=== PATIENT | female | born 1945 | race Caucasian/White ===

== ENCOUNTER 2020-01-02 14:46 | Outpatient (CLI) | payer BC, SELFPAY ==
--- NOTE | ~2020-01-02 | DEXA_ITS ---
Bone Density Report Name: lAea Henson Age: 74 Sex: Female Ethnicity: White Date of : 1945 Indication: postmenopausal; height loss; Referring Provider: Estefania Guillory Study: Bone densitometry was performed. Exam Date: January 02, 2020 Accession number: [id number] Bone Density: Region BMD T-score Z-score Classification AP Spine (L1-L4) 0.919 -1.2 1.2 Osteopenia Femoral Neck (Left) 0.712 -1.2 0.8 Osteopenia Total Hip (Left) 0.958 0.1 1.8 Normal Total Hip Bilateral Avg 0.950 0.1 1.8 Normal Femoral Neck (Right) 0.721 -1.2 0.9 Osteopenia Total Hip (Right) 0.940 0.0 1.7 Normal World Health Organization criteria for BMD impression classify patients as: Normal (T-score at or above -1.0), Osteopenia (T-score between -1.0 and -2.5), or Osteoporosis (T-score at or below -2.5). 10-year Fracture Risk(1): Major Osteoporotic Fracture 9.0% Hip Fracture 1.3% Reported Risk Factors: [place] (), Neck BMD=0.712, BMI=39.1 (1) FRAX(R) Version 3.08. Fracture probability calculated for an untreated patient. Fracture probability may be lower if the patient has received treatment. Clinical Information Provided by Patient: Patient maximum height was 61 Menopause Age: 53 No regular weight bearing exercise Drinks caffeinated beverages Onset of menses at age 12 Number of children 3 Impression: The patient has low bone mass, based on the Total Spine T-score. The patient has an estimated ten-year risk of hip fracture of 1.3% and an estimated ten-year risk of major fracture of 9%, based on the WHO FRAX algorithm. Discussion: BONE DENSITY IS LOW AT ONE OR MORE SKELETAL SITES. This patient's lowest T-score is low at one or more skeletal sites. It meets the World Health Organization's (WHO) criteria for ?low bone mass? (T-score between -1.0 and -2.5). The patient's 10-year risk of fracture as calculated by FRAX is less than the threshold where pharmacological therapy is recommended by the National Osteoporosis Foundation (NOF). However, all treatment decisions require clinical judgment and consideration of individual patient factors, including patient preferences, comorbidities, previous drug use, risk factors not captured in the FRAX model (e.g., frailty, falls, vitamin D deficiency, increased bone turnover, interval significant decline in bone density) and possible under or overestimation of fracture risk by FRAX. The patient should follow a healthful lifestyle (good nutrition with adequate calcium and vitamin D, and appropriate weight-bearing exercise). Follow-Up: Consider repeating this study in 2 to 3 years to reassess this patient's status, or sooner if there is some new clinical indication. Reported by: CADEN on 01/02/2020 3:12:00 PM. Reviewed,
--- NOTE | ~2020-01-02 | MM_ITS ---
EXAMINATION: MM screening alvaro BI w juan ramon HISTORY: Screening TECHNIQUE: Craniocaudal and mediolateral oblique 3-D tomosynthesis images were obtained and synthetic 2-D images were generated. CAD analysis was submitted and interpreted. COMPARISON: No prior mammogram is available for comparison at this institution. BREAST PARENCHYMAL COMPOSITION: Breast composed of scattered areas of fibroglandular density FINDINGS: There is no evidence of suspicious mass, calcification, or architectural distortion to sugg est malignancy in either breast. There has been no suspicious interval change. IMPRESSION: 1. No mammographic evidence of malignancy. 2. Recommend routine screening mammography in one year. BI-RADS Category 1: Negative Reviewed, dictated and finalized at location A.
== END 2020-01-02 14:47 | disposition home or self-care (01) ==
PROVIDERS: PCP Family Medicine; Visit Provider Physician Assistant
DX: Z12.31 Encounter for screening mammogram for malignant neoplasm of breast (principal); Z78.0 Asymptomatic menopausal state; M85.89 Other specified disorders of bone density and structure, multiple sites
CPT/HCPCS: 77063; 77067; 77080

== ENCOUNTER 2020-02-25 14:30 | Outpatient (RCR) | payer BC, SELFPAY ==
[2020-02-03 12:57] VITALS: BMI 37.7
[2020-02-03 12:58] VITALS: BMI 37.7
== END 2020-03-29 09:44 | disposition home or self-care (01) ==
LOC: ANHDMC 14:30
PROVIDERS: PCP Family Medicine; Visit Provider Family Medicine
DX: E11.9 Type 2 diabetes mellitus without complications (principal); Z71.89 Other specified counseling; Z71.3 Dietary counseling and surveillance
CPT/HCPCS: 97802; G0108; G0109

== ENCOUNTER 2020-07-14 14:30 | Outpatient (RCR) | payer BC, SELFPAY ==
[2020-04-29 08:01] VITALS: BMI 37.7
== END 2020-07-26 12:00 | disposition home or self-care (01) ==
LOC: ANHDMC 14:30
PROVIDERS: PCP Family Medicine; Visit Provider Family Medicine
DX: E11.9 Type 2 diabetes mellitus without complications (principal); Z71.3 Dietary counseling and surveillance; Z71.89 Other specified counseling
CPT/HCPCS: 97803; G0109

== ENCOUNTER 2020-11-08 13:00 | Outpatient (RCR) | payer BC, SELFPAY | END 2020-11-08 16:14 | disposition home or self-care (01) | LOC: ANHDMC 13:00 | PROVIDERS: PCP Family Medicine; Visit Provider Family Medicine | DX: E11.9 Type 2 diabetes mellitus without complications (principal); Z71.89 Other specified counseling | CPT/HCPCS: G0108; G0109 ==

== ENCOUNTER → 2021-03-02 02:58 | Outpatient (CLI) | payer BC, SELFPAY ==
[2021-03-02 19:23] LABS: SARS-CoV-2 RNA PCR Negative
== END ==
PROVIDERS: PCP Family Medicine; Visit Provider Nurse Practitioner Family
DX: Z20.822 Contact with and (suspected) exposure to COVID-19 (principal); R05.9 Cough, unspecified
CPT/HCPCS: C9803; U0003; U0005

== ENCOUNTER 2021-03-04 12:06 | Outpatient (CLI) | payer BC, SELFPAY ==
--- NOTE | ~2021-03-04 | XR_ITS ---
EXAMINATION: XR abdomen/kub 1V DATE: 03/04/2021 12:21 INDICATION: Constipation, unspecified. TECHNIQUE: A supine view of the abdomen on 2 radiographs was obtained. COMPARISON: None. FINDINGS: There are no dilated loops of bowel. There is a large volume of stool in the colon. There i s a phlebolith in left pelvis. IMPRESSION: 1. Nonobstructive bowel gas pattern. Reviewed, dictated and finalized at location A.
== END 2021-03-04 12:07 | disposition home or self-care (01) ==
LOC: ANHIMG 12:08
PROVIDERS: PCP Family Medicine; Visit Provider Nurse Practitioner Family
DX: K59.00 Constipation, unspecified (principal); R10.9 Unspecified abdominal pain
CPT/HCPCS: 74018

== ENCOUNTER 2021-03-16 15:28 | Outpatient (CLI) | payer BC, SELFPAY ==
--- NOTE | ~2021-03-16 | XR_ITS ---
EXAMINATION: XR chest 2V EXAM DATE: 03/16/2021 15:40 INDICATION: R05.9 - Cough, SOB, HTN, HX pneumonia. TECHNIQUE: Frontal and lateral projections of the chest obtained and reviewed. Comparison is made to prior examination from 01/09/2018. FINDINGS: Increased density on the lateral projection probably large epicardial fat pad. The lungs a re clear. There are no pleural effusions. The cardiomediastinal silhouette is within normal limits. There is no pneumothorax suspected. The bones and soft tissues are unremarkable. There is no sig nificant interval change. IMPRESSION: No acute cardiopulmonary findings. Reviewed, dictated and finalized at location B.
== END 2021-03-16 15:29 | disposition home or self-care (01) ==
LOC: ANHIMG 15:30
PROVIDERS: PCP Family Medicine; Visit Provider Physician Assistant
DX: R05.9 Cough, unspecified (principal)
CPT/HCPCS: 71046

== ENCOUNTER 2021-04-19 17:48 | Outpatient (CLI) | payer BC, SELFPAY ==
--- NOTE | ~2021-04-19 | XR_ITS ---
EXAMINATION: XR chest 2V DATE: 04/19/2021 18:17 INDICATION: Cough. Shortness of breath. TECHNIQUE: Frontal and lateral views of the chest were obtained. COMPARISON: Chest 2 views 03/16/2021 FINDINGS: The patient is rotated to her left on the frontal view. There is mild atelectasis at right lung base. No pleural effusion or pneumothorax. The heart size is normal. There are prominent paracar dial fat pads. IMPRESSION: 1. Mild atelectasis at right lung base. Reviewed, dictated and finalized at location A. [employer]IST
== END 2021-04-19 17:49 | disposition home or self-care (01) ==
LOC: ANHIMG 17:52
PROVIDERS: PCP Family Medicine; Visit Provider Physician Assistant
DX: R05.9 Cough, unspecified (principal); R06.02 Shortness of breath; J98.11 Atelectasis
CPT/HCPCS: 71046

== ENCOUNTER 2021-04-20 13:04 | Outpatient (CLI) | payer BC, SELFPAY ==
[2021-04-20 14:01] LABS: Basophils Percent Auto 0.4 % (0.2-1.2); Eosinophils Absolute Auto 0.6 K/mm3 (0-0.3); Eosinophils Percent Auto 6.7 % (0-4.4); Hematocrit 36.4 % (37.0-47.0); Hemoglobin 12.2 g/dL (12.0-15.0); Immature Granulocyte Absolute 0.06 K/mm3 (0.00-0.031); Immature Granulocyte Percent A 0.7 % (0-0.5); Lymphocytes Absolute Auto 2.31 K/mm3 (0.9-3.2); Lymphocytes Percent Auto 27.5 % (18.3-44.2); Mean Corpuscular HGB Conc 33.5 g/dl (32-36); Mean Corpuscular Hemoglobin 31.9 pg (26-34); Mean Platelet Volume 9.3 fl (7.4-10.4); Monocytes Absolute Auto 0.6 K/mm3 (0.1-0.6); Monocytes Percent Auto 7.2 % (2.6-8.5); Neutrophils Absolute Auto 4.8 K/mm3 (1.3-6.7); Neutrophils Percent Auto 57.5 % (45.5-73.1); Platelet Count Result 204 k/mm3 (150-375); Red Blood Count 3.83 M/mm3 (4.2-5.4); White Blood Count 8.4 K/mm3 (4.5-10.0)
== END 2021-04-20 13:05 | disposition home or self-care (01) ==
PROVIDERS: PCP Family Medicine; Visit Provider Physician Assistant
DX: R05.9 Cough, unspecified (principal)
CPT/HCPCS: 36415; 85025

== ENCOUNTER → 2021-04-26 03:18 | Outpatient (CLI) | payer BC, SELFPAY ==
[2021-04-26 20:28] LABS: SARS-CoV-2 RNA PCR Negative
== END ==
PROVIDERS: PCP Family Medicine; Visit Provider Physician Assistant
DX: R05.9 Cough, unspecified (principal); R06.2 Wheezing; Z20.822 Contact with and (suspected) exposure to COVID-19
CPT/HCPCS: C9803; U0003; U0005

== ENCOUNTER → 2021-05-30 04:02 | Outpatient (CLI) | payer BC, SELFPAY ==
[2021-05-30 14:39] LABS: Influenza Control Positive
[2021-05-30 20:23] LABS: SARS-CoV-2 RNA PCR Positive
== END ==
PROVIDERS: PCP Family Medicine; Visit Provider Physician Assistant
DX: U07.1 COVID-19 (principal); R05.9 Cough, unspecified
CPT/HCPCS: 87804; C9803; U0003; U0005

== ENCOUNTER 2023-08-20 18:00 | Inpatient (IN) | payer BC, MEDICARE, SELFPAY ==
--- NOTE | ~2023-08-20 | CT_ITS ---
EXAMINATION: CT abdomen pelvis w con DATE: 08/21/2023 13:54 INDICATION: Abdominal bloating. TECHNIQUE: Computed tomography (CT) of the abdomen and pelvis was performed with 100 mL Omnipaque 350 intravenous contrast. Automated exposure control and iterative reconstruction technique were employe d. The dose-length product was 969.30 mGy-cm. COMPARISON: None. FINDINGS: The visualized portions of the lung bases demonstrate mild atelectasis in right middle lobe and lingula and right lower lobe. There are airspace opacities in left lower lobe with air bronchogr ams and volume loss. No pleural effusion. The heart size is normal. No pericardial effusion. The live r is normal. There are gallstones in the gallbladder, which is normal in size. The spleen, pancreas, adrenal glands, and kidneys are normal. There is diverticulosis of the colon without evidence of dive rticulitis. There are no dilated loops of bowel. The appendix is normal. There are no pathologically enlarged lymph nodes. There is no free intraperitoneal fluid. There is an umbilical hernia containing fat. There is severe thoracic and lumbar spondylosis. IMPRESSION: 1. Umbilical hernia containing fat. 2. Worsened airspace opacities in left lower lobe, consistent with pneumonia. 3. Cholelithiasis. No evidence of acute cholecystitis. Reviewed, dictated and finalized at location A.
--- NOTE | ~2023-08-20 | CT_ITS ---
Clinical Indication: Dyspnea CT Scan of the Chest with Contrast: Technique: Contiguous sections were acquired throughout the chest after intravenous administration of 100 cc of Omnipaque 350. Dose reduction technique was used on this scan by utilizing automated expos ure control and iterative reconstruction technique. The dose-length product (DLP) was 865.35 mGy-cm. Findings: There is no evidence of any significant mediastinal, hilar or axillary lymphadenopathy. There is no f illing defect in the pulmonary arterial tree to suggest pulmonary embolus. There is no evidence of ao rtic dissection or aneurysm. There is no evidence of pleural or pericardial effusion. Left basilar consolidation could reflect atelectasis versus pneumonia.. Images through the upper abdomen reveal gallstones. Impression: No evidence of pulmonary embolus, aortic dissection, or aortic aneurysm. Left lower lobe pneumonia versus atelectasis. Cholelithiasis. Reviewed, dictated and finalized at [facility]. Impression: No evidence of pulmonary embolus, aortic dissection, or aortic aneurysm. Left lower lobe pneumonia versus atelectasis. Cholelithiasis.
--- NOTE | ~2023-08-20 | XR_ITS ---
EXAMINATION: XR chest 2V Exam Date/Time: 08/20/2023 18:20 CDT HISTORY: sob Comparison: 04/19/2021, report only. RESULT: Lines, tubes, and devices: None. Lungs and pleura: Clear. Cardiomediastinal silhouette: Stable. Other: No acute osseous or upper abdominal finding. IMPRESSION: No acute cardiopulmonary process. Reviewed, dictated and finalized at location K.
[2023-08-20 18:05] VITALS: BP 151/55; PULSE 88; RESP 22; TEMP 37.2; O2SAT 94
--- NOTE | 2023-08-20 22:57 | ECG_ITS ---
Measurements Intervals [place] Rate: 96 P: 42 VA: 132 QRS: -2 QRSD: 94 T: 33 QT: 349 QTc: 442 Interpretive Statements SINUS RHYTHM INCOMPLETE RIGHT BUNDLE BRANCH BLOCK [90+ ms QRS DURATION, TERMINAL R IN V1/V2, 40+ ms S IN I/aVL/V4/V5/V6] MODERATE VOLTAGE CRITERIA FOR LVH, CONSIDER NORMAL VARIANT [MEETS CRITERIA IN ONE OF: R(aVL), S(V1), R(V5), R(V5/V6)+S(V1)] POSSIBLE ANTERIOR MYOCARDIAL INFARCTION , PROBABLY OLD [30 ms Q WAVE IN V3/V4, OR R < 0.2 mV IN V4] NO PREVIOUS ECG AVAILABLE FOR COMPARISON Electronically Signed On 08-21-2023 8:51:14 CDT by Jose Antonio Mack M.D.
--- NOTE | 2023-08-20 23:03 | ED.GENADULT ---
HPI - General Adult General Chief complaint: Shortness of Breath/Dyspnea <DORYS Lewis Last Filed: 08/21/23 02:41> Stated complaint: shortness of breath <DORYS Lewis Last Filed: 08/21/23 02:41> Time Seen by Provider: 08/20/23 22:50 <DORYS Lewis Last Filed: 08/21/23 02:41> Source: patient <DORYS Lewis Last Filed: 08/21/23 02:41> Mode of arrival: ambulatory <DORYS Lewis Last Filed: 08/21/23 02:41> Limitations: no limitations <DORYS Lewis Last Filed: 08/21/23 02:41> History of Present Illness HPI narrative: This is a 78-year-old female who who presents to the ED for chief complaint of dyspnea times 2 weeks. Reports that she has had short of breath and a productive cough for this entire time. Reports she went to urgent care initially and had negative COVID, flu, RSV test. States that they gave her antibiotics and steroids for possible developing pneumonia and does seem to help for a few days but things started to get worse again. Patient reports that she is more short of breath at night and unable to lay flat. Denies leg swelling. She feels that her abdomen is bloated and is causing some chest discomfort but denies any specific chest pain. Denies syncope, abdominal pain, nausea vomiting, urinary symptoms or back pain. She is here with daughter endorses that patient has had chills and subjective fevers. <DORYS Lewis Last Filed: 08/21/23 02:41> Related Data Home medications: Home Medications Medication Instructions Recorded Confirmed acetaminophen 325 mg tablet 650 mg PO TID PRN Pain 08/21/23 08/21/23 (Tylenol) fexofenadine 30 mg tablet 30 mg PO DAILY 08/21/23 08/21/23 oxybutynin chloride 5 mg 5 mg PO DAILY 08/21/23 08/21/23 tablet,extended release 24 hr <DORYS Lewis Last Filed: 08/21/23 02:41> Allergies/adverse reactions: Allergies Allergy/AdvReac Type Severity Reaction Status Date / Time erythromycin base Allergy Unknown Rash Verified 08/20/23 18:09 Penicillins Allergy Unknown Rash Verified 08/20/23 18:09 <Cody Gramajo PA-C - Last Filed: 08/21/23 02:41> Review of Systems Review of Systems: All systems as dictated in HPI <DORYS Lewis Last Filed: 08/21/23 02:41> [facility] Past Medical History Medical History: Medical History Diabetes mellitus Osteopenia Sleeping difficulties Wellness examination <DORYS Lewis Last Filed: 08/21/23 02:41> Family History Family History: Family History Father Diabetes mellitus Hypertension Family history of cardiovascular disease Mother Diabetes mellitus Sibling Diabetes mellitus <DORYS Lewis Last Filed: 08/21/23 02:41> Social History Social History: Social History Smoking status: Never smoker Second hand tobacco smoke exposure: No Alcohol intake: never Substance use: never Substance use type: does not use Do You Feel Safe in your Home?: Yes Lack of Transportation: No Lack of Food: Never True Current Housing: I Have Housing Concerned About Future Housing: No Difficulty Paying Gas/Electric Bills: No Difficulty Paying for Meds: No Currently Unemployed: No Education: High School Diploma/GED Difficulty w/ Childcare or Family Care: No Living arrangements: with family Additional living arrangements comments: Grandson Occupation/Education: occupation Gender identity (if verbalized by the patient): Female Sexual Orientation (if Verbalized by the Patient): Straight or Heterosexual Spiritual care concerns: No <DORYS Lewis Last Filed: 08/21/23 02:41> Exam Narrative: GENERAL: Appears ill. Appears fatigued and elderly. Warm to touch diffusely HEAD: Normocephalic, atra
[2023-08-20 23:11] LABS: Basophils Percent Auto 0.2 % (0.2-1.2); Eosinophils Percent Auto 0.2 % (0-4.4); Hematocrit 39.5 % (37.0-47.0); Hemoglobin 12.7 g/dL (12.0-15.0); Immature Granulocyte Absolute 0.05 K/mm3 (0.00-0.031); Immature Granulocyte Percent A 0.4 % (0-0.5); Lymphocytes Absolute Auto 1.04 K/mm3 (0.9-3.2); Lymphocytes Percent Auto 8.4 % (18.3-44.2); Mean Corpuscular HGB Conc 32.2 g/dl (32-36); Mean Corpuscular Hemoglobin 31.2 pg (26-34); Mean Corpuscular Volume 97.1 fl (80-100); Monocytes Percent Auto 8.4 % (2.6-8.5); Neutrophils Absolute Auto 10.2 K/mm3 (1.3-6.7); Neutrophils Percent Auto 82.4 % (45.5-73.1); Platelet Count Result 177 k/mm3 (150-375); Red Blood Count 4.07 M/mm3 (4.2-5.4); Red Cell Distribution Width 13.1 % (11.5-14.5); White Blood Count 12.4 K/mm3 (4.5-10.0)
[2023-08-20 23:17] VITALS: TEMP 39.1
[2023-08-20 23:20] LABS: INR 1.1; Lactic Acid Reflex 3.9 mmol/L (0.7-2.0); Prothrombin Time 14.3 Seconds (11.1-14.7)
[2023-08-20 23:21] LABS: Partial Thromboplastin Time 28.5 Seconds (22.3-36.8)
[2023-08-20 23:23] LABS: Alanine Aminotransferase 24 U/L (6-35); Albumin Level 3.9 g/dL (3.5-5.1); Alkaline Phosphatase 74 U/L (38-126); Anion Gap 10 mmol/L (4-12); Aspartate Amino Transferase 27 U/L (14-36); Bilirubin,Total 0.7 mg/dL (0.2-1.3); Blood Urea Nitrogen 16 mg/dL (7-17); Calcium 8.8 mg/dL (8.4-10.2); Carbon Dioxide 23 mmol/L (22-30); Chloride 101 mmol/L (98-107); Estimated CRCL calculation 50 ml/min; Estimated Glomerular Filt Rate > 60; Glucose 187 mg/dL (65-110); Magnesium 1.5 mg/dL (1.6-2.3); Potassium 4.1 mmol/L (3.4-5.0); Sodium 134 mmol/L (137-145)
[2023-08-20 23:28] VITALS: O2SAT 95
[2023-08-20 23:30] VITALS: PULSE 95; RESP 19
[2023-08-20] MEDS: SODIUM CHLORIDE 0.9% IV 1,000 ML 999 ML IV CONT (23:30)
[2023-08-20] MEDS: IPRATROPIUM 0.5 MG/ALBUTEROL SULFATE 2.5 MG AMPUL.NEB 3 ML INHALATION (23:30)
[2023-08-20] MEDS: ACETAMINOPHEN 500 MG TABLET 1000 MG PO (23:30)
[2023-08-20 23:33] LABS: Troponin I < 0.012 ng/mL (0.000-0.034)
[2023-08-20 23:39] LABS: NT Pro B Type Natriuretic Pept 393 pg/mL (19.9-100)
[2023-08-20 23:40] LABS: Appearance Urine Clear (Clear); Bilirubin Urine Negative (Negative); Blood Urine Negative (Negative); Color Urine Yellow (Yellow); Glucose Urine UA Negative (Negative); Ketones Urine Negative (Negative); Leukocyte Esterase Ur Negative LEU/UL (Negative); Nitrate Urine Negative (Negative); Protein Urine Negative (Negative); Specific Grav Ur 1.022 (1.001-1.035); Urobilinogen Urine 0.2 mg/dL (<2.0)
[2023-08-20 23:42] LABS: Add Urine Microscopic? NO
[2023-08-20] MEDS: ONDANSETRON INJ 4 MG/2 ML VIAL IV PUSH (23:43)
[2023-08-20 23:54] LABS: Alveolar/Arterial O2 Gradient 168.5 mmHg; Fractional Inspired Oxygen 48 %; HCO3 ABG 22.6 mEq/l (22.0-26.0); Oxygen Content ABG 17.4 %vol (16.0-22.0); Oxygen Saturation ABG 98.6 % (95.0-100.0); Oxyhemoglobin 97.2 % THb (90.0-100.0); PCO2 ABG 38.1 mmHg (35.0-45.0); PO2 ABG 130.7 mmHg (80.0-100.0); PO2 FiO2 Ratio Arterial Blood 2.72 %; Total Hemoglobin 12.6 g/dL (12.0-18.0); pH ABG 7.391 (7.350-7.450)
[2023-08-20 23:57] LABS: Influenza A QL RT-PCR Negative (Negative); Influenza B QL RT-PCR Negative (Negative); RSV RNA, RT-PCR Negative (Negative); SARS-CoV-2 RNA PCR Negative (Negative)
[2023-08-20] MEDS: AZITHROMYCIN 500 MG/NS 250 ML 500 MG/250 ML BAG 250 MG IVPB (23:59)
[2023-08-21] VITALS (26 sets, daily range): BP systolic 117–141; BP diastolic 46–68; PULSE 66–100; RESP 19–28; TEMP 36.4–38.2; O2SAT 95–100; BMI 37.2
[2023-08-21 00:02] LABS: Device OTHER DEVICE; Modified Allen's Test Pass; Site Drawn LEFT RADIAL
[2023-08-21] MEDS: IPRATROPIUM 0.5 MG/ALBUTEROL SULFATE 2.5 MG AMPUL.NEB 3 ML INHALATION ×3 (01:14→20:10)
[2023-08-21] MEDS: SODIUM CHLORIDE 0.9% IV 1,000 ML 999 ML IV CONT (01:45)
[2023-08-21] MEDS: MAGNESIUM SULF 2 GM/WATER 50ML 2 GM/50 ML BAG IVPB (01:48)
[2023-08-21] MEDS: ONDANSETRON INJ 4 MG/2 ML VIAL IV PUSH (01:49)
[2023-08-21 02:07] LABS: Reflex Lactic Acid Yes or No Add Lactic
--- NOTE | 2023-08-21 02:09 | PC.NURSE ---
Pt daughter contacted and given update.
--- NOTE | 2023-08-21 03:28 | ADMGEN ---
This patient, Alea Henson, was admitted to IMU Room 200-01. Patient/family oriented to hospital policies and general routines including ID bracelet, bed and alarms, visiting hours, pain management, procedures, bathroom and other care routines, personal items, smoking policy, room service/diet, and visiting hours. Information on how to activate the Rapid Response Team has been discussed. Patient/Family are encouraged to report perceived risks to care and to ask questions if they do not understand what they are told or what they should do.
[2023-08-21] MEDS: SODIUM CHLORIDE 0.9% IV 1,000 ML 125 ML IV CONT ×2 (03:53→12:05)
[2023-08-21] MEDS: ACETAMINOPHEN 325 MG TABLET 650 MG PO ×2 (03:54→14:39)
[2023-08-21 05:40] LABS: Lactic Acid 3.3 mmol/L (0.7-2.0)
--- NOTE | 2023-08-21 11:28 | PM.IMHP ---
H&P: HPI History of Present Illness Date/Time: 08/21/23 11:28 Chief Complaint: Shortness of breath Narrative: 78yo female with DM and untreated ERIC here for shortness of breath. Patient underwent screening colonoscopy on July 22 that showed diverticulosis. She had EGD performed as well because symptoms of acid reflux but this was negative. She tolerated the procedure well. No evidence of vomiting during or after the procedure. She was well until about a week later when she developed shortness of breath, rhinorrhea, fever and cough productive green-yellow sputum. She went to the urgent care center on August 02 and was treated with steroids and antibiotics. No chest x-ray was done but exam was consistent with pneumonia. She was treated with clindamycin t.i.d. for 10 days which she completed. She began to feel better with this treatment but once off antibiotics her symptoms returned a few days later. Over the past week or so, patient has had increasing symptoms with shortness of breath, abdominal bloating, fever and cough still productive green-yellow sputum. She has orthopnea symptoms. No exposures that she is aware of. She has had pneumonia 3-4 times but the last episode of pneumonia was 2018. She did have a sinus fraction treated with antibiotics in June. No history of resistant bacteria. No recent travel. She has also complained headache. No leg swelling. She did develop nausea and vomiting in the ED of yellow emesis. No history of asthma or emphysema but does have untreated sleep apnea. No history of CHF. She has been able tolerate some food but not eating very much. She is passing stool with the last bowel movement yesterday. She has a history of constipation. No diarrhea. She did call her doctor but was unable to get in touch with the provider. Her symptoms worsened and she presented to emergency room for evaluation. In the emergency room, she was febrile to 102.4. Blood pressure stable. Respiratory was 22. She is 94% on room air. She was not tachycardic. White count was 12 K with a left shift. ABG was 7.39/38/131 on 7 L. lactic acid was 3.9. Magnesium was low and this was replaced. BNP was 393. Troponin was negative. Urinalysis was clear. Influenza, RSV and COVID PCR were negative. Chest x-ray was clear. CTA of chest showed no PE but did show left basilar consolidation atelectasis versus pneumonia as well as gallstones. She denies abdominal pain. She was treated with bronchodilators, acetaminophen, Zofran and given appropriate IV fluids. She was given Rocephin and azithromycin. She was admitted for further care. Review of Systems Review of Systems: All systems reviewed & are unremarkable except as noted in HPI and below PMFSH Past Medical History Medical History (Updated 08/21/23 @ 13:38 by Duane Navarro MD) Diabetes mellitus Hypertension ERIC (obstructive sleep apnea) Osteopenia Sleeping difficulties Wellness examination Surgical History Surgical History (Updated 08/21/23 @ 12:24 by Duane Navarro MD) History of bladder suspension procedure Hx of abdominoplasty Hx of breast surgery Hx of toe surgery Family History Family History Father Diabetes mellitus Hypertension Family history of cardiovascular disease Mother Diabetes mellitus Sibling Diabetes mellitus Social History Social History Smoking status: Never smoker Second hand tobacco smoke exposure: No Alcohol intake: never Substance use: never Substance use type: does not use Do You Feel Safe in your Home?: Yes Lack of Transportation: No Lack of Food: Never True Current Housing: I Have Housing Concerned About Future Housing: No Difficulty Paying Gas/Electric Bills: No Difficulty Paying for Meds: No Currently Unemployed: No Education: High School Diploma/GED Difficulty w/
[2023-08-21 13:21] LABS: Basophils Percent Auto 0.1 % (0.2-1.2); Eosinophils Percent Auto 0.2 % (0-4.4); Hematocrit 35.9 % (37.0-47.0); Hemoglobin 11.3 g/dL (12.0-15.0); Immature Granulocyte Absolute 0.04 K/mm3 (0.00-0.031); Immature Granulocyte Percent A 0.3 % (0-0.5); Lymphocytes Absolute Auto 1.62 K/mm3 (0.9-3.2); Lymphocytes Percent Auto 13.8 % (18.3-44.2); Mean Corpuscular HGB Conc 31.5 g/dl (32-36); Mean Corpuscular Hemoglobin 31.2 pg (26-34); Mean Corpuscular Volume 99.2 fl (80-100); Mean Platelet Volume 10.1 fl (7.4-10.4); Monocytes Absolute Auto 0.9 K/mm3 (0.1-0.6); Monocytes Percent Auto 7.9 % (2.6-8.5); Neutrophils Absolute Auto 9.1 K/mm3 (1.3-6.7); Neutrophils Percent Auto 77.7 % (45.5-73.1); Platelet Count Result 149 k/mm3 (150-375); Red Blood Count 3.62 M/mm3 (4.2-5.4); Red Cell Distribution Width 13.4 % (11.5-14.5); White Blood Count 11.7 K/mm3 (4.5-10.0)
[2023-08-21 13:34] LABS: Alanine Aminotransferase 19 U/L (6-35); Albumin Level 3.3 g/dL (3.5-5.1); Alkaline Phosphatase 62 U/L (38-126); Anion Gap 4 mmol/L (4-12); Aspartate Amino Transferase 19 U/L (14-36); Bilirubin,Total 0.8 mg/dL (0.2-1.3); Blood Urea Nitrogen 11 mg/dL (7-17); Calcium 7.9 mg/dL (8.4-10.2); Carbon Dioxide 25 mmol/L (22-30); Chloride 107 mmol/L (98-107); Estimated CRCL calculation 57 ml/min; Estimated Glomerular Filt Rate > 60; Glucose 110 mg/dL (65-110); Magnesium 2.5 mg/dL (1.6-2.3); Sodium 136 mmol/L (137-145)
[2023-08-21 13:35] LABS: Lactic Acid Reflex 1.1 mmol/L (0.7-2.0)
[2023-08-21] MEDS: SERTRALINE HCL 25 MG TABLET 75 MG PO (14:29)
[2023-08-21] MEDS: VANCOMYCIN 1,250 MG/NS 250 ML 1,250 MG/250 ML BAG 166.67 MG IVPB (14:29)
[2023-08-21] MEDS: PANTOPRAZOLE SODIUM IV 40 MG VIAL IV PUSH ×2 (14:29→20:20)
[2023-08-21 15:02] LABS: Procalcitonin 1.1 ng/mL
[2023-08-21] MEDS: VANCOMYCIN 1,000 MG/NS 250 ML 1,000 MG/250 ML BAG 250 MG IVPB (16:37)
[2023-08-21] MEDS: methylPREDNISolone SOD SUCC 125 MG VIAL 60 MG IV PUSH (17:35)
--- NOTE | 2023-08-21 18:06 | PC.NURSE ---
Patient c/o SOB, lungs auscultated, vitals reordered. Dr. Navarro updated new orders given.
[2023-08-21 19:23] LABS: MRSA (PCR) NOT DETECTED (NOT DETECTE)
[2023-08-21] MEDS: cefTRIAXone 2 GM/NS 100 ML 2 GM/100 ML BAG IVPB (20:20)
[2023-08-21] MEDS: AZITHROMYCIN 500 MG/NS 250 ML 500 MG/250 ML BAG 250 MG IVPB (22:45)
[2023-08-22] VITALS (24 sets, daily range): BP systolic 115–177; BP diastolic 44–69; PULSE 62–88; RESP 18–22; TEMP 36.1–36.6; O2SAT 94–98
[2023-08-22] MEDS: methylPREDNISolone SOD SUCC 125 MG VIAL 60 MG IV PUSH ×5 (00:53→23:52)
[2023-08-22] MEDS: IPRATROPIUM 0.5 MG/ALBUTEROL SULFATE 2.5 MG AMPUL.NEB 3 ML INHALATION ×4 (02:02→20:36)
[2023-08-22 04:37] LABS: Basophils Percent Auto 0.1 % (0.2-1.2); Hematocrit 34.5 % (37.0-47.0); Immature Granulocyte Absolute 0.05 K/mm3 (0.00-0.031); Immature Granulocyte Percent A 0.5 % (0-0.5); Lymphocytes Absolute Auto 0.56 K/mm3 (0.9-3.2); Lymphocytes Percent Auto 5.5 % (18.3-44.2); Mean Corpuscular HGB Conc 31.9 g/dl (32-36); Mean Corpuscular Hemoglobin 32.6 pg (26-34); Mean Corpuscular Volume 102.4 fl (80-100); Mean Platelet Volume 10.1 fl (7.4-10.4); Monocytes Absolute Auto 0.1 K/mm3 (0.1-0.6); Monocytes Percent Auto 1.4 % (2.6-8.5); Neutrophils Absolute Auto 9.5 K/mm3 (1.3-6.7); Neutrophils Percent Auto 92.5 % (45.5-73.1); Platelet Count Result 143 k/mm3 (150-375); Red Blood Count 3.37 M/mm3 (4.2-5.4); Red Cell Distribution Width 13.2 % (11.5-14.5); White Blood Count 10.3 K/mm3 (4.5-10.0)
[2023-08-22 04:51] LABS: Alanine Aminotransferase 43 U/L (6-35); Albumin Level 3.4 g/dL (3.5-5.1); Alkaline Phosphatase 72 U/L (38-126); Anion Gap 5 mmol/L (4-12); Aspartate Amino Transferase 37 U/L (14-36); Bilirubin,Total 0.4 mg/dL (0.2-1.3); Blood Urea Nitrogen 12 mg/dL (7-17); Calcium 8.4 mg/dL (8.4-10.2); Carbon Dioxide 24 mmol/L (22-30); Chloride 108 mmol/L (98-107); Estimated CRCL calculation 57 ml/min; Estimated Glomerular Filt Rate > 60; Glucose 278 mg/dL (65-110); Magnesium 2.5 mg/dL (1.6-2.3); Potassium 4.9 mmol/L (3.4-5.0); Sodium 137 mmol/L (137-145)
[2023-08-22] MEDS: PANTOPRAZOLE SODIUM IV 40 MG VIAL IV PUSH (08:15)
[2023-08-22] MEDS: SERTRALINE HCL 25 MG TABLET 75 MG PO (08:15)
--- NOTE | 2023-08-22 14:48 | PM.IMPN ---
Progress Note: A&P Assessment and Plan (1) Sepsis: Code(s): A41.9 - Sepsis, unspecified organism Status: Acute Assessment and Plan: Patient with sepsis present on admission with fever, leukocytosis and lactic acidosis. Her symptoms seem to be out of proportion to clinical findings and imaging. She does have wheezing anteriorly so her respiratory distress could be more related to reactive airway disease. The pneumonia also may be less well-defined if she is dehydrated. She was treated with clindamycin with improvement. Will start Solu-Medrol. Continue bronchodilators. pt is currently on iv rocephin/ zithromax DC vanc mrsa is negative AWait blood and sputum cultures (2) Pneumonia: Code(s): J18.9 - Pneumonia, unspecified organism Status: Acute Assessment and Plan: CTA chest showing LLL consolidation PNA vs atelectasis. (3) Abdominal distention: Code(s): R14.0 - Abdominal distension (gaseous) Status: Acute Assessment and Plan: Patient with abdominal distention suspect impinging on her diaphram causing worsening SOB. Could be ileus related to sepsis from PNA. Consider free air from perforation since she looks more ill then the expected. CT A/P ordered which was nl (4) Diabetes mellitus: Code(s): E11.9 - Type 2 diabetes mellitus without complications Status: Acute Assessment and Plan: Patient has a hx of diet controlled DM. A1c 6.3. Add SSI especially since adding steroids. (5) Hypertension: Code(s): I10 - Essential (primary) hypertension Status: Acute Assessment and Plan: BP is stable (6) ERIC (obstructive sleep apnea): Code(s): G47.33 - Obstructive sleep apnea (adult) (pediatric) Status: Acute Assessment and Plan: Noncompliant with treatment Subjective Date/time seen: 08/22/23 14:48 Interval history: 78yo female with DM and untreated ERIC here for shortness of breath.? Patient underwent screening colonoscopy on July 22 that showed diverticulosis.? She had EGD performed as well because symptoms of acid reflux but this was negative.? She tolerated the procedure well.? No evidence of vomiting during or after the procedure.? She was well until about a week later when she developed shortness of breath, rhinorrhea, fever and cough productive green-yellow sputum.? She went to the urgent care center on March 15th and was treated with steroids and antibiotics. Pt admitted with community acquired pneumonia pt has been having alot of sinus problems lately pt is on 1 liter of oxygen currently Review of Systems Review of Systems: cough +sob+ fever All systems reviewed & are unremarkable except as noted in HPI and below Exam Narrative: Generally - pleasant older lady Chest - BL crackles CV - heart was regular rate and rhythm. S1-S2. No murmurs gallops or rubs. Abd - abdomen was soft. protuberant and tympanitic. Ext - no clubbing, cyanosis or edema. 2+ DP pulses bilaterally. Neuro - patient is alert and oriented x4. Strength is 5/5 in both upper and lower extremities. Cranial nerves 2-12 are intact. Speech is clear. Psych - normal mood and affect. Patient appears uncomfortable Skin - warm and dry. No rashes noted. Objective Data Vital Signs Vital Signs: Vital Signs - 24 hr 08/21/23 16:00 08/21/23 18:00 08/21/23 16:00 Temperature 36.7 C Pulse Rate 72 80 Respiratory Rate 24 H 20 Blood Pressure 137/48 L 133/47 L Pulse Oximetry 99 98 98 Oxygen Delivery Nasal Cannula Oxygen Flow Rate 2 Fraction of Inspired Oxygen 08/21/23 16:00 08/21/23 20:05 08/21/23 20:11 Temperature 36.5 C Pulse Rate 78 70 71 Respiratory Rate 20 20 Blood Pressure 135/46 L Pulse Oximetry 99 Oxygen Delivery Oxygen Flow Rate Fraction of Inspired Oxygen 08/21/23 20:11 08/21/23 20:20 08/21/23 20:00 Temperature Pulse Rate 71 70 Respiratory R
[2023-08-22] MEDS: cloNIDine HCL 0.1 MG TABLET PO (17:32)
[2023-08-22] MEDS: cefTRIAXone 2 GM/NS 100 ML 2 GM/100 ML BAG IVPB (21:22)
[2023-08-22] MEDS: AZITHROMYCIN 500 MG/NS 250 ML 500 MG/250 ML BAG 250 MG IVPB (21:23)
[2023-08-23] VITALS (29 sets, daily range): BP systolic 141–175; BP diastolic 49–70; PULSE 55–84; RESP 18–20; TEMP 36.5–36.8; O2SAT 92–99
[2023-08-23] MEDS: IPRATROPIUM 0.5 MG/ALBUTEROL SULFATE 2.5 MG AMPUL.NEB 3 ML INHALATION ×4 (02:41→20:11)
[2023-08-23 04:46] LABS: Hematocrit 31.5 % (37.0-47.0); Hemoglobin 10.8 g/dL (12.0-15.0); Mean Corpuscular HGB Conc 34.3 g/dl (32-36); Mean Corpuscular Hemoglobin 33.9 pg (26-34); Mean Corpuscular Volume 98.7 fl (80-100); Mean Platelet Volume 10.4 fl (7.4-10.4); Platelet Count Result 163 k/mm3 (150-375); Red Blood Count 3.19 M/mm3 (4.2-5.4); Red Cell Distribution Width 12.9 % (11.5-14.5); White Blood Count 10.7 K/mm3 (4.5-10.0)
[2023-08-23 05:11] LABS: Anion Gap 6 mmol/L (4-12); Blood Urea Nitrogen 14 mg/dL (7-17); Calcium 9.1 mg/dL (8.4-10.2); Carbon Dioxide 26 mmol/L (22-30); Chloride 108 mmol/L (98-107); Estimated CRCL calculation 58 ml/min; Estimated Glomerular Filt Rate > 60; Glucose 276 mg/dL (65-110); Potassium 4.6 mmol/L (3.4-5.0); Sodium 140 mmol/L (137-145)
[2023-08-23] MEDS: methylPREDNISolone SOD SUCC 125 MG VIAL 60 MG IV PUSH ×2 (06:41→12:52)
[2023-08-23] MEDS: oxyBUTYnin CHLORIDE XL 5 MG TAB.ER.24 PO (09:38)
[2023-08-23] MEDS: SERTRALINE HCL 25 MG TABLET 75 MG PO (09:38)
[2023-08-23] MEDS: PANTOPRAZOLE 40 MG TABLET PO (09:38)
[2023-08-23] MEDS: cloNIDine HCL 0.1 MG TABLET PO ×2 (09:38→16:34)
[2023-08-23] MEDS: LOSARTAN POTASSIUM 50 MG TABLET PO (09:38)
[2023-08-23] MEDS: LORATADINE 5 MG TABLET PO (09:38)
[2023-08-23] MEDS: ROSUVASTATIN 5 MG TABLET PO (09:38)
--- NOTE | 2023-08-23 13:07 | PM.IMPN ---
Progress Note: A&P Assessment and Plan (1) Sepsis: Code(s): A41.9 - Sepsis, unspecified organism Status: Acute Assessment and Plan: Patient with sepsis present on admission with fever, leukocytosis and lactic acidosis. Her symptoms seem to be out of proportion to clinical findings and imaging. She does have wheezing anteriorly so her respiratory distress could be more related to reactive airway disease. The pneumonia also may be less well-defined if she is dehydrated. She was treated with clindamycin with improvement. Continue bronchodilators. pt is currently on iv rocephin/ zithromax DC vanc mrsa is negative cultures negative to date DC iv steroids (2) Pneumonia: Code(s): J18.9 - Pneumonia, unspecified organism Status: Acute Assessment and Plan: CTA chest showing LLL consolidation PNA vs atelectasis. (3) Abdominal distention: Code(s): R14.0 - Abdominal distension (gaseous) Status: Acute Assessment and Plan: Patient with abdominal distention suspect impinging on her diaphram causing worsening SOB. Could be ileus related to sepsis from PNA. Consider free air from perforation since she looks more ill then the expected. CT A/P ordered which was nl (4) Diabetes mellitus: Code(s): E11.9 - Type 2 diabetes mellitus without complications Status: Acute Assessment and Plan: Patient has a hx of diet controlled DM. A1c 6.3. Add SSI especially since adding steroids. (5) Hypertension: Code(s): I10 - Essential (primary) hypertension Status: Acute Assessment and Plan: BP is stable (6) ERIC (obstructive sleep apnea): Code(s): G47.33 - Obstructive sleep apnea (adult) (pediatric) Status: Acute Assessment and Plan: Noncompliant with treatment Subjective Date/time seen: 08/23/23 13:07 Interval history: 78yo female with DM and untreated ERIC here for shortness of breath.? Patient underwent screening colonoscopy on July 22 that showed diverticulosis.? She had EGD performed as well because symptoms of acid reflux but this was negative.? She tolerated the procedure well.? No evidence of vomiting during or after the procedure.? She was well until about a week later when she developed shortness of breath, rhinorrhea, fever and cough productive green-yellow sputum.? She went to the urgent care center on August 02 and was treated with steroids and antibiotics. 08/22/2023 Pt admitted with community acquired pneumonia pt has been having alot of sinus problems lately pt is on 1 liter of oxygen currently 08/23/2023 Pt is weaned off oxygen doing better still some cough, sugars and BP are high today likely due to IV steroids Review of Systems Review of Systems: Ongoing cough Exam Narrative: Generally - pleasant older lady Chest - BL crackles CV - heart was regular rate and rhythm. S1-S2. No murmurs gallops or rubs. Abd - abdomen was soft. protuberant and tympanitic. Ext - no clubbing, cyanosis or edema. 2+ DP pulses bilaterally. Neuro - patient is alert and oriented x4. Strength is 5/5 in both upper and lower extremities. Cranial nerves 2-12 are intact. Speech is clear. Psych - normal mood and affect. Patient appears uncomfortable Skin - warm and dry. No rashes noted. Objective Data Vital Signs Vital Signs: Vital Signs - 24 hr 08/22/23 13:10 08/22/23 16:05 08/22/23 16:14 Temperature 36.6 C Pulse Rate 74 88 Respiratory Rate 18 20 Blood Pressure 165/68 H Pulse Oximetry 97 Oxygen Delivery Nasal Cannula Oxygen Flow Rate 1 Fraction of Inspired Oxygen 08/22/23 16:00 08/22/23 16:00 08/22/23 20:25 Temperature 36.4 C Pulse Rate 88 76 Respiratory Rate 20 Blood Pressure 150/65 H Pulse Oximetry 97 94 Oxygen Delivery Nasal Cannula Oxygen Flow Rate 1 Fraction of Inspired Oxygen 08/22/23 20:37 08/22/23 20:39 08/22/23 20:48 Temperat
[2023-08-23] MEDS: hydroCHLOROthiazide 25 MG TABLET PO (16:34)
[2023-08-23] MEDS: INSULIN ASPART (*BKC) 100 UNITS/ML SUB-Q (16:36)
[2023-08-23 16:41] LABS: Glucose Point of Care 288 mg/dl (65-105)
[2023-08-23] MEDS: cefTRIAXone 2 GM/NS 100 ML 2 GM/100 ML BAG IVPB (21:47)
[2023-08-23] MEDS: AZITHROMYCIN 500 MG/NS 250 ML 500 MG/250 ML BAG 250 MG IVPB (21:47)
[2023-08-23] MEDS: methylPREDNISolone SOD SUCC 40 MG VIAL 20 MG IV PUSH (21:48)
[2023-08-24] VITALS (23 sets, daily range): BP systolic 137–176; BP diastolic 58–99; PULSE 56–81; RESP 16–21; TEMP 36.3–36.9; O2SAT 93–97
[2023-08-24] MEDS: IPRATROPIUM 0.5 MG/ALBUTEROL SULFATE 2.5 MG AMPUL.NEB 3 ML INHALATION ×4 (02:10→20:52)
[2023-08-24 03:13] LABS: Legionella pneumophila Ag Ur Not Detected (Not Detected)
[2023-08-24 03:57] LABS: Pneumococcal Antigen Urine Not Detected (Not Detected)
[2023-08-24 07:57] LABS: Glucose Point of Care 264 mg/dl (65-105)
[2023-08-24] MEDS: INSULIN ASPART (*BKC) 100 UNITS/ML SUB-Q ×3 (08:11→16:52)
[2023-08-24] MEDS: LORATADINE 5 MG TABLET PO (08:12)
[2023-08-24] MEDS: PANTOPRAZOLE 40 MG TABLET PO (08:12)
[2023-08-24] MEDS: hydroCHLOROthiazide 25 MG TABLET PO (08:12)
[2023-08-24] MEDS: SERTRALINE HCL 25 MG TABLET 75 MG PO (08:13)
[2023-08-24] MEDS: cloNIDine HCL 0.1 MG TABLET PO ×2 (08:13→16:50)
[2023-08-24] MEDS: LOSARTAN POTASSIUM 50 MG TABLET PO (08:13)
[2023-08-24] MEDS: oxyBUTYnin CHLORIDE XL 5 MG TAB.ER.24 PO (08:13)
[2023-08-24 12:07] LABS: Glucose Point of Care 417 mg/dl (65-105)
[2023-08-24 13:07] LABS: Glucose Point of Care 317 mg/dl (65-105)
--- NOTE | 2023-08-24 13:55 | PM.IMPN ---
Progress Note: A&P Assessment and Plan (1) Sepsis: Code(s): A41.9 - Sepsis, unspecified organism Status: Acute (2) Pneumonia: Code(s): J18.9 - Pneumonia, unspecified organism Status: Acute (3) Abdominal distention: Code(s): R14.0 - Abdominal distension (gaseous) Status: Acute (4) Diabetes mellitus: Code(s): E11.9 - Type 2 diabetes mellitus without complications Status: Acute (5) Hypertension: Code(s): I10 - Essential (primary) hypertension Status: Acute (6) ERIC (obstructive sleep apnea): Code(s): G47.33 - Obstructive sleep apnea (adult) (pediatric) Status: Acute Plan 78-year-old female with medical history of diabetes mellitus and untreated ERIC present with shortness of breath. Patient underwent screening colonoscopy on July 22 that showed diverticulosis. She had EGD performed as well because of symptoms of acid reflux but was negative. She tolerated the procedure well. A week later she developed shortness of breath rhinorrhea feed which is green yellow in color. She the urgent care August 02 was treated with steroid and antibiotic. No chest x-ray was done but exam was consistent with pneumonia. She was treated with clindamycin t.i.d. for 10 days which she completed. DN to feel better with this treatment and but once off antibiotics the symptoms returned a few days later abdominal bloating fever cough with still productive green-yellow sputum. She also had orthopnea symptoms. No leg swelling. History of asthma eczema that untreated sleep apnea no history of CHF. In the ER evaluation she was febrile at 1:02 a.m. 0.4 blood pressure was stable respiratory rate was 22 per minute 94% tachycardic a 1000 with left shift ABG 7.39/38/131 on 7 L oxygen. Cast was 3.9. Magnesium was low and was replaced. BNP was 393. Troponin was negative. UA clear. Influenza RSV and COVID PCR was negative. Chest x-ray was clear. However CTA was done which showed no PE however noted left basilar consolidation atelectasis versus pneumonia as well as gallstones. She was started on Rocephin and azithromycin was admitted for further treatment. CVS criteria for sepsis with leukocytosis fever and lactic acidosis she was actively wheezy upon presentation was started on Solu-Medrol along with bronchodilators. Abdomen was distended likely suspected to be ileus. IV steroid was will be discontinued. Hyperglycemia likely related to IV steroid. CT abdomen pelvis was ordered for abdominal distention which was negative for any acute intra-abdominal findings. Sputum culture was negative blood culture was no growth to date. Urine pneumococcal antigen was negative Legionella antigen was negative. Will switch antibiotics to oral cefdinir and finish the course DVT prophylaxis start Lovenox Subjective Date/time seen: 08/24/23 13:55 Interval history: 78yo female with DM and untreated ERIC here for shortness of breath.? Patient underwent screening colonoscopy on July 22 that showed diverticulosis.? She had EGD performed as well because symptoms of acid reflux but this was negative.? She tolerated the procedure well.? No evidence of vomiting during or after the procedure.? She was well until about a week later when she developed shortness of breath, rhinorrhea, fever and cough productive green-yellow sputum.? She went to the urgent care center on August 02 and was treated with steroids and antibiotics. 08/22/2023 Pt admitted with community acquired pneumonia pt has been having a lot of sinus problems lately pt is on 1 liter of oxygen currently 08/23/2023: Pt is weaned off oxygen doing better still some cough, sugars and BP are high today likely due to IV steroids 08/24/2023: Feeling much better. Blood sugar cough still present. Off oxygen now. Review of Systems Review of Systems: All systems reviewed & are unremarkable except as noted in HPI and below Exam Narrative: Generally - pleasant
[2023-08-24 14:54] LABS: Basophils Percent Auto 0.4 % (0.2-1.2); Hemoglobin 10.8 g/dL (12.0-15.0); Immature Granulocyte Absolute 0.54 K/mm3 (0.00-0.031); Immature Granulocyte Percent A 5.3 % (0-0.5); Lymphocytes Absolute Auto 0.86 K/mm3 (0.9-3.2); Lymphocytes Percent Auto 8.5 % (18.3-44.2); Mean Corpuscular HGB Conc 32.7 g/dl (32-36); Mean Corpuscular Hemoglobin 31.1 pg (26-34); Mean Corpuscular Volume 95.1 fl (80-100); Mean Platelet Volume 10.4 fl (7.4-10.4); Monocytes Absolute Auto 0.6 K/mm3 (0.1-0.6); Monocytes Percent Auto 6.1 % (2.6-8.5); Neutrophils Absolute Auto 8.1 K/mm3 (1.3-6.7); Neutrophils Percent Auto 79.7 % (45.5-73.1); Platelet Count Result 193 k/mm3 (150-375); Red Blood Count 3.47 M/mm3 (4.2-5.4); Red Cell Distribution Width 12.7 % (11.5-14.5); White Blood Count 10.2 K/mm3 (4.5-10.0)
[2023-08-24 15:05] LABS: Alanine Aminotransferase 44 U/L (6-35); Albumin Level 3.8 g/dL (3.5-5.1); Alkaline Phosphatase 83 U/L (38-126); Anion Gap 5 mmol/L (4-12); Aspartate Amino Transferase 24 U/L (14-36); Bilirubin,Total 0.4 mg/dL (0.2-1.3); Blood Urea Nitrogen 27 mg/dL (7-17); Calcium 9.7 mg/dL (8.4-10.2); Carbon Dioxide 29 mmol/L (22-30); Chloride 100 mmol/L (98-107); Estimated CRCL calculation 42 ml/min; Estimated Glomerular Filt Rate 54; Glucose 333 mg/dL (65-110); Magnesium 2.2 mg/dL (1.6-2.3); Sodium 134 mmol/L (137-145)
[2023-08-24 15:35] LABS: Glucose Point of Care 303 mg/dl (65-105)
[2023-08-24] MEDS: polyethylene glycoL 3350 17 GM POWD.PACK PO (16:11)
[2023-08-24 17:01] LABS: Glucose Point of Care 342 mg/dl (65-105)
--- NOTE | 2023-08-24 17:15 | PC.NURSE ---
This patient, Alea Henson, was transferred to [[id number] ] on 08/24/23 at 1705. Personal belongings sent with patient. Appropriate documentation sent with patient.
[2023-08-24] MEDS: CEFDINIR 300 MG CAPSULE PO (20:27)
[2023-08-24] MEDS: AZITHROMYCIN 250 MG TABLET 500 MG PO (20:28)
[2023-08-25] MEDS: IPRATROPIUM 0.5 MG/ALBUTEROL SULFATE 2.5 MG AMPUL.NEB 3 ML INHALATION ×3 (02:43→13:23)
[2023-08-25 02:44] VITALS: PULSE 60; RESP 18
[2023-08-25 02:54] VITALS: PULSE 63; RESP 18
[2023-08-25 06:00] VITALS: BP 132/53; PULSE 74; RESP 16; TEMP 36.3; O2SAT 94
--- NOTE | 2023-08-25 06:03 | PCRCNOTE ---
pt refused use of NIV and stated that she does not use home unit
[2023-08-25 07:35] VITALS: PULSE 62; RESP 18
[2023-08-25 07:55] LABS: Glucose Point of Care 130 mg/dl (65-105)
[2023-08-25] MEDS: cloNIDine HCL 0.1 MG TABLET PO (09:40)
[2023-08-25] MEDS: ENOXAPARIN 40 MG/0.4 ML SYRINGE SUB-Q (09:40)
[2023-08-25] MEDS: hydroCHLOROthiazide 25 MG TABLET PO (09:40)
[2023-08-25] MEDS: CEFDINIR 300 MG CAPSULE PO (09:40)
[2023-08-25] MEDS: LOSARTAN POTASSIUM 50 MG TABLET PO (09:41)
[2023-08-25] MEDS: ROSUVASTATIN 5 MG TABLET PO (09:41)
[2023-08-25] MEDS: oxyBUTYnin CHLORIDE XL 5 MG TAB.ER.24 PO (09:41)
[2023-08-25] MEDS: LORATADINE 5 MG TABLET PO (09:41)
[2023-08-25] MEDS: polyethylene glycoL 3350 17 GM POWD.PACK PO (09:41)
[2023-08-25] MEDS: PANTOPRAZOLE 40 MG TABLET PO (09:41)
[2023-08-25] MEDS: SERTRALINE HCL 25 MG TABLET 75 MG PO (09:42)
[2023-08-25 11:42] LABS: Glucose Point of Care 251 mg/dl (65-105)
[2023-08-25] MEDS: INSULIN ASPART (*BKC) 100 UNITS/ML SUB-Q (12:15)
--- NOTE | 2023-08-25 13:04 | PM.DS ---
DS: Admitting Diagnosis Discharge Date 08/25/2023 Admitting Diagnosis Shortness of breath DS: Discharge Diagnosis Discharge Diagnosis (1) Sepsis: Code(s): A41.9 - Sepsis, unspecified organism Status: Acute (2) Pneumonia: Code(s): J18.9 - Pneumonia, unspecified organism Status: Acute (3) Abdominal distention: Code(s): R14.0 - Abdominal distension (gaseous) Status: Acute (4) Diabetes mellitus: Code(s): E11.9 - Type 2 diabetes mellitus without complications Status: Acute (5) Hypertension: Code(s): I10 - Essential (primary) hypertension Status: Acute (6) ERIC (obstructive sleep apnea): Code(s): G47.33 - Obstructive sleep apnea (adult) (pediatric) Status: Acute DS: Summary Hospital Course Hospital Course: 78-year-old female with medical history of diabetes mellitus and untreated ERIC present with shortness of breath.? Patient underwent screening colonoscopy on July 22 that showed diverticulosis.? She had EGD performed as well because of symptoms of acid reflux but was negative.? She tolerated the procedure well.? A week later she developed shortness of breath rhinorrhea feed which is green yellow in color.? She the urgent care August 02 was treated with steroid and antibiotic.? No chest x-ray was done but exam was consistent with pneumonia.? She was treated with clindamycin t.i.d. for 10 days which she completed.? DN to feel better with this treatment and but once off antibiotics the symptoms returned a few days later abdominal bloating fever cough with still productive green-yellow sputum.? She also had orthopnea symptoms.? No leg swelling.? History of asthma eczema that untreated sleep apnea no history of CHF. In the ER evaluation she was febrile at 102.4, blood pressure was stable respiratory rate was 22 per minute 94% tachycardic a 1000 with left shift ABG 7.39/38/131 on 7 L oxygen.? Cast was 3.9.? Magnesium was low and was replaced.? BNP was 393.? Troponin was negative.? UA clear.? Influenza RSV and COVID PCR was negative.? Chest x-ray was clear.? However CTA was done which showed no PE however noted left basilar consolidation atelectasis versus pneumonia as well as gallstones.? She was started on Rocephin and azithromycin was admitted for further treatment. CVS criteria for sepsis with leukocytosis fever and lactic acidosis she was actively wheezy upon presentation was started on Solu-Medrol along with bronchodilators.? Abdomen was distended likely suspected to be ileus.? IV steroid was will be discontinued.? Hyperglycemia likely related to IV steroid.? CT abdomen pelvis was ordered for abdominal distention which was negative for any acute intra-abdominal findings.? Sputum culture was negative blood culture was no growth to date.? Urine pneumococcal antigen was negative Legionella antigen was negative. Will switch antibiotics to oral cefdinir and finish the course. Blood sugar has improved advised her to PCP with regard to the treatment DVT prophylaxis start Lovenox Time Spent with Patient Time attestation: Total time spent providing and/or coordinating discharge services: 32 minutes Exam Narrative: Generally - pleasant older lady not in acute distress Chest -coarse breath sound bilaterally no wheezes mild crackles in right lower lobe CV - heart was regular rate and rhythm. S1-S2. No murmurs gallops or rubs. Abd - abdomen was soft. Distended normal bowel sounds Ext - no clubbing, cyanosis or edema. 2+ DP pulses bilaterally. Neuro - patient is alert and oriented x4. Strength is 5/5 in both upper and lower extremities. Cranial nerves 2-12 are intact. Speech is clear. Psych - normal mood and affect. Skin - warm and dry. No rashes noted. DS: Data Data Completed and Pending Labs on day of discharge: Labs from last 24 hours 08/25/23 08/25/23 08/24/23 11:14 07:50 16:51 WBC RBC Hgb Hct MCV MCH MCHC RDW Plt Count MPV
[2023-08-25 13:23] VITALS: PULSE 64; RESP 18
[2023-08-25 14:00] VITALS: BP 142/74; PULSE 77; RESP 18; TEMP 35.9; O2SAT 97
== END 2023-08-25 15:00 | disposition home or self-care (01) | DRG 871 ==
LOC: ANHED 08-21 02:21 → ANHIMU 08-21 02:23 → ANH3MEDSUR 08-24 16:58
PROVIDERS: Family Medicine; Internal Medicine; Admitting Provider Internal Medicine; Emergency Provider Physician Assistant; PCP Family Medicine; Visit Provider Internal Medicine
DX: A41.9 Sepsis, unspecified organism (principal); J18.9 Pneumonia, unspecified organism; K56.7 Ileus, unspecified; Z20.822 Contact with and (suspected) exposure to COVID-19; E11.9 Type 2 diabetes mellitus without complications; M85.80 Other specified disorders of bone density and structure, unspecified site; G47.33 Obstructive sleep apnea (adult) (pediatric); I10 Essential (primary) hypertension
CPT/HCPCS: 36415; 36600; 71046; 71275; 74177; 80048; 80053; 81003; 82805; 82948; 83605; 83735; 83880; 84145; 84484; 85025; 85027; 85610; 85730; 87040; 87070; 87205; 87449; 87637; 87641; 87899; 93005; 94640; 97161; 97165; 97530; 97535; 99285; A9270; C9113; G0378; J0456; J0696; J1650; J1815; J2405; J2919; J3370; J3475; J7030; Q9967

== ENCOUNTER 2023-08-30 08:34 | Outpatient (CLI) | payer BC, SELFPAY ==
--- NOTE | ~2023-08-30 | XR_ITS ---
Clinical Indication: Pneumonia PA and lateral views of the chest: Comparison: 08/20/2023 Findings: The lungs are clear, aside from linear left basilar scarring or atelectasis. Cardiomediast inal silhouette is within normal limits. Bones and soft tissues are unremarkable. Impression: Linear left basilar scarring or atelectasis, otherwise clear lungs. Reviewed, dictated and finalized at location . Impression: Linear left basilar scarring or atelectasis, otherwise clear lungs.
== END 2023-08-30 08:35 ==
PROVIDERS: PCP Family Medicine; Visit Provider Family Medicine
DX: R91.8 Other nonspecific abnormal finding of lung field (principal); J18.9 Pneumonia, unspecified organism
CPT/HCPCS: 71046